=== PATIENT | female | born 1995 | race Caucasian/White ===

== ENCOUNTER → 2017-09-05 12:23 | Outpatient (CLI) | payer MEDICAID, SELFPAY ==
[2017-09-05 13:53] LABS: T4 Free Direct 0.77 ng/dL (0.76-1.46)
[2017-09-07 11:22] LABS: Dilute Russell Viper Venom 29.2 sec (0.0-47.0)
[2017-09-07 11:28] LABS: Beta-2-Glycoprotein I IgA <9 (0-25); Beta-2-Glycoprotein I IgG <9 (0-20); Beta-2-Glycoprotein I IgM <9 (0-32)
== END ==
PROVIDERS: Family Provider Obstetrics & Gynecology Maternal & Fetal Medicine; PCP Pediatrics; Visit Provider Obstetrics & Gynecology Maternal & Fetal Medicine
DX: O09.292 Supervision of pregnancy with other poor reproductive or obstetric history, second trimester (principal); Z3A.00 Weeks of gestation of pregnancy not specified
CPT/HCPCS: 36415; 84439; 84443; 85613; 86146

== ENCOUNTER → 2017-09-21 14:21 | Outpatient (CLI) | payer MEDICAID, SELFPAY ==
[2017-09-21 15:51] LABS: Glucose Challenge Gest 1H 50g 76 mg/dL (70-140)
[2017-09-21 15:56] LABS: Hematocrit 32.4 % (37-47); Hemoglobin 10.4 g/dl (12.0-15.0); Mean Corp Hgb Conc 32.1 g/gl (32-36); Mean Corpuscular Hgb 29.5 pg (27.0-32.0); Mean Corpuscular Volume 91.8 fL (81-99); Mean Platelet Vol. 10.5 fl (6.2-12.0); Platelet Count 220 K/mm3 (150-450); RBC Distribution Width CV 13.3 % (11.6-14.6); RBC Distribution Width SD 44.2 fl (35.1-43.9); Red Blood Count 3.53 M/mm3 (4.2-5.4); White Blood Count 8.2 K/mm3 (4.4-11.0)
[2017-09-21 16:08] LABS: Scan Indicated on CBC? Y/N NO
== END ==
PROVIDERS: Visit Provider Obstetrics & Gynecology
DX: Z34.82 Encounter for supervision of other normal pregnancy, second trimester (principal)
CPT/HCPCS: 36415; 82950; 85027

== ENCOUNTER → 2017-10-11 18:45 | Outpatient (CLI) | payer MEDICAID, SELFPAY ==
[2017-10-11 19:26] LABS: Free T3 2.6 pg/mL (2.18-3.98); T4 Free Direct 0.87 ng/dL (0.76-1.46); Thyroid Stim Hormone (TSH) 1.19 uIU/mL (0.358-3.74)
== END ==
PROVIDERS: Pediatrics; Visit Provider Obstetrics & Gynecology
DX: O99.283 Endocrine, nutritional and metabolic diseases complicating pregnancy, third trimester (principal); R94.6 Abnormal results of thyroid function studies; Z3A.00 Weeks of gestation of pregnancy not specified
CPT/HCPCS: 84439; 84443; 84481

== ENCOUNTER → 2017-11-01 15:18 | Outpatient (CLI) | payer MEDICAID, SELFPAY ==
[2017-11-01 17:02] LABS: Free T3 2.1 pg/mL (2.18-3.98); T4 Free Direct 0.85 ng/dL (0.76-1.46); Thyroid Stim Hormone (TSH) 0.78 uIU/mL (0.358-3.74)
== END ==
PROVIDERS: Visit Provider Obstetrics & Gynecology
DX: E05.90 Thyrotoxicosis, unspecified without thyrotoxic crisis or storm (principal)
CPT/HCPCS: 36415; 84439; 84443; 84481

== ENCOUNTER 2017-11-11 19:25 | Outpatient (CLI) | payer MEDICAID, SELFPAY ==
[2017-11-11 19:45] VITALS: BMI 26.9
[2017-11-11 20:04] LABS: Mucous, Urine 0 SEEN /hpf (<or=2+); Red Blood Cells-Urine 0 SEEN /hpf (0-5)
[2017-11-11 20:10] LABS: Color, Urine Yellow (Yellow); Glucose, Dipstick Normal (Normal); Ketone-Dipstick Negative (Negative); Leukocyte Esterase-Dipstick 100 /ul (Negative); Nitrite-Dipstick Negative (Negative); Occult Blood-Urine Negative /ul (Negative); Protein-Dipstick Negative (Negative); Specific Gravity, Urine 1.015 (1.002-1.030); Urine Bilirubin Dipstick Negative (Negative); Urine Clarity Cloudy (Clear); Urine Urobilinogen 1 mg/dl (Normal); Urine pH 6.5 (5.0 - 8.0)
[2017-11-11 20:22] LABS: Coarse Granular Cast 0-5 SEEN /lpf (0-5 /lpf); Fine Granular Cast- Urine 0 SEEN /lpf (0-5)
[2017-11-11 20:24] LABS: Bacteria 1+ /hpf (None Seen)
[2017-11-11 20:25] LABS: Squamous Epithelial Cells - UA 5-10 SEEN /hpf (5-10)
[2017-11-11 20:27] LABS: White Blood Cells 10-25 SEEN /hpf (0-5)
[2017-11-11 20:29] LABS: ROM Internal Control Test YES-OK TO RESULT pt. (Internal QC); ROM Patient Test Negative (Negative)
[2017-11-11 20:29] LABS: Amorphous Sediment 1+
[2017-11-11 21:08] VITALS: BP 123/66; PULSE 88; RESP 18; TEMP 37.1
--- NOTE | 2017-11-15 07:28 | OB.TRI.NOTE ---
History of Present Illness Was patient seen by the physician?: No Reason For Visit: R/O LABOR Date of Service: 11/11/17 Final AMANDA: 12/22/17 Final AMANDA Source: US <20 weeks Gestational age: 34 Weeks and 1 Days History of Present Illness: 22yo at 34 1/7wga with c/o irregular contractions and leaking of fluid. Home Medications Medication Instructions Recorded Multivitamin Tablet 1 tab PO DAILY 01/26/17 Allergies No Known Allergies Allergy (Verified 11/11/17 20:47) Physical Exam Vitals: Vital Signs Temp Pulse Resp BP 98.8 F 88 18 123/66 H 11/11/17 21:08 11/11/17 21:08 11/11/17 21:08 11/11/17 21:08 NST - FHR Rate Baby A Baseline: 150 Variability:: Moderate Accelerations:: 15 x 15 Decelerations:: None NST Reactive:: Yes FHR Category:: Category I Uterine Activity:: 1/10 min Impression/Plan Dx false labor < 37wga -ROM plus negative -U/A - not definitive for UTI, possible contamination, Ucx sent -d/c home
== END 2017-11-11 21:13 | disposition home or self-care (01) ==
LOC: WPOUT 19:28 → WP 19:29
PROVIDERS: Family Provider Pediatrics; PCP Pediatrics; Visit Provider Obstetrics & Gynecology
DX: O47.03 False labor before 37 completed weeks of gestation, third trimester (principal); Z3A.34 34 weeks gestation of pregnancy
CPT/HCPCS: 59025; 59050; 81001; 84112; 87086; 87088; 99218; G0378

== ENCOUNTER 2017-11-17 01:02 | Outpatient (CLI) | payer MEDICAID, SELFPAY ==
[2017-11-17 01:29] VITALS: BMI 26.6
[2017-11-17 02:10] VITALS: RESP 18
--- NOTE | 2017-11-30 23:48 | OB.TRI.NOTE ---
History of Present Illness Date of Service: 11/18/17 Was patient seen by the physician?: No Reason For Visit: R/O LABOR Date of Service: 11/18/17 Final AMANDA: 12/22/17 Final AMANDA Source: US <20 weeks Gestational age: 36 Weeks and 6 Days History of Present Illness: Irregular contractions. Allergies No Known Allergies Allergy (Verified 11/17/17 01:27) Physical Exam Vitals: Vital Signs Resp 18 11/17/17 02:10 General: Alert, Oriented x3, Cooperative, No apparent distress Cardiovascular: Regular rate, Regular Rhythm Lungs: Clear to auscultation, Normal air movement Abdomen: Soft, Non Tender, Non-Distended, Gravid, Appropriate for Gestational Age Extremities:: No edema Neurological: Neuro grossly intact HEALTH COMMUNICATIONS SPECIALIST: Normal external genitalia Estimated gestational size: Appropriate for gestational size Presentation: Cephalic Cervix Dilation (cm): 2 Station: -3 Effacement (%): 50 NST - FHR Rate Baby A Baseline: 130s Variability:: Moderate Accelerations:: 15 x 15 Decelerations:: None NST Reactive:: Yes FHR Category:: Category I Uterine Activity:: irregular Impression/Plan No cervical change. Contractions mild. No signs of SROM. Cat 1 tracing.
--- NOTE | 2017-11-30 23:51 | OB.TRI.HP_ITS ---
History of Present Illness Date of Service: 11/18/17 Was patient seen by the physician?: No Reason For Visit: R/O LABOR Date of Service: 11/18/17 Final AMANDA: 12/22/17 Final AMANDA Source: US <20 weeks Gestational age: 36 Weeks and 6 Days History of Present Illness: Irregular contractions. Allergies No Known Allergies Allergy (Verified 11/17/17 01:27) Physical Exam Vitals: Vital Signs Resp 18 11/17/17 02:10 General: Alert, Oriented x3, Cooperative, No apparent distress Cardiovascular: Regular rate, Regular Rhythm Lungs: Clear to auscultation, Normal air movement Abdomen: Soft, Non Tender, Non-Distended, Gravid, Appropriate for Gestational Age Extremities:: No edema Neurological: Neuro grossly intact [employer]: Normal external genitalia Estimated gestational size: Appropriate for gestational size Presentation: Cephalic Cervix Dilation (cm): 2 Station: -3 Effacement (%): 50 NST - FHR Rate Baby A Baseline: 130s Variability:: Moderate Accelerations:: 15 x 15 Decelerations:: None NST Reactive:: Yes FHR Category:: Category I Uterine Activity:: irregular Impression/Plan No cervical change. Contractions mild. No signs of SROM. Cat 1 tracing.
== END 2017-11-17 02:10 | disposition home or self-care (01) ==
LOC: WPOUT 01:11 → WP 01:11
PROVIDERS: Family Provider Pediatrics; PCP Pediatrics; Visit Provider Obstetrics & Gynecology
DX: O47.03 False labor before 37 completed weeks of gestation, third trimester (principal); Z3A.36 36 weeks gestation of pregnancy
CPT/HCPCS: 59025; 59050; 99218; G0378

== ENCOUNTER 2017-11-18 22:35 | Outpatient (CLI) | payer MEDICAID, SELFPAY ==
[2017-11-18 23:37] LABS: ROM Internal Control Test YES-OK TO RESULT pt. (Internal QC); ROM Patient Test Negative (Negative)
[2017-11-19 00:01] VITALS: BMI 27.1
--- NOTE | 2017-11-19 12:43 | OB.TRI.NOTE ---
History of Present Illness Date of Service: 11/18/17 Was patient seen by the physician?: No Reason For Visit: R/O LABOR Date of Service: 11/18/17 Final AMANDA Source: US <20 weeks Gestational age: 35 weeks 1 day History of Present Illness: 35+ week intrauterine presents with some leaking of fluid. Concerned that she may be ruptured. Some irregular contractions. Allergies No Known Allergies Allergy (Verified 11/17/17 01:27) NST - FHR Rate Baby A NST Reactive:: Yes FHR Category:: Category I Impression/Plan 35+ week intrauterine presents with some transient contractions and concern about rupture of membranes. ROM plus test was negative. Cervix was 2-3 thick and high. Reactive nonstress test. Will release to home with routine instructions.
== END 2017-11-19 00:15 | disposition home or self-care (01) ==
LOC: WPOUT 23:06 → WP 23:07
PROVIDERS: Family Provider Pediatrics; PCP Pediatrics; Visit Provider Obstetrics & Gynecology
DX: O60.03 Preterm labor without delivery, third trimester (principal); Z3A.35 35 weeks gestation of pregnancy
CPT/HCPCS: 59025; 59050; 84112; 99218; G0378

== ENCOUNTER 2017-11-21 11:50 | Outpatient (CLI) | payer MEDICAID, SELFPAY ==
--- NOTE | 2017-11-21 11:50 | DT_ITS ---
This patient was seen during an EMR downtime November 21, 2017 - November 28, 2017. This patient may have a combination of paper and electronic documentation or all paper documentation. All documentation is viewable within the e-chart portion of [facility] for each patient visit.
[2017-11-24 18:25] LABS: ROM Internal Control Test YES-OK TO RESULT pt. (Internal QC); ROM Patient Test Negative (Negative)
--- NOTE | 2017-12-14 09:23 | OB.TRI.NOTE ---
History of Present Illness Was patient seen by the physician?: No Reason For Visit: R/O LABOR Date of Service: 11/21/17 Final AMANDA: 12/22/17 Final AMANDA Source: US <20 weeks Gestational age: 35 Weeks and 4 Days History of Present Illness: 35+ week intrauterine presents with contractions and possible leaking of amniotic fluid. Allergies No Known Allergies Allergy (Verified 11/17/17 01:27) NST - FHR Rate Baby A NST Reactive:: Yes Impression/Plan 35+ week intrauterine with transient contractions. ROM plus negative. Reactive nonstress test. Released to home with routine instructions.
== END 2017-11-21 15:50 | disposition home or self-care (01) ==
LOC: WPOUT 11-23 08:07
PROVIDERS: Family Provider Pediatrics; PCP Pediatrics; Visit Provider Obstetrics & Gynecology
DX: O47.03 False labor before 37 completed weeks of gestation, third trimester (principal); Z3A.35 35 weeks gestation of pregnancy
CPT/HCPCS: 59025; 59050; 84112; 99218; G0378

== ENCOUNTER → 2017-11-23 14:00 | Outpatient (CLI) | payer SELFPAY ==
--- NOTE | 2017-11-23 14:00 | DT_ITS ---
This patient was seen during an EMR downtime November 21, 2017 - November 28, 2017. This patient may have a combination of paper and electronic documentation or all paper documentation. All documentation is viewable within the e-chart portion of [facility] for each patient visit.
[2017-11-26 09:33] LABS: Group B Strep DNA By PCR Negative (Negative); Internal Control PASS; Probe Check PASS; Specimen Processing Control PASS
== END ==
PROVIDERS: Family Provider Pediatrics; PCP Pediatrics; Visit Provider Obstetrics & Gynecology
DX: Z34.83 Encounter for supervision of other normal pregnancy, third trimester (principal)
CPT/HCPCS: 87081; 87653

== ENCOUNTER 2017-12-13 06:06 | Inpatient (IN) | payer MEDICAID, SELFPAY ==
[2017-12-13 06:42] VITALS: BMI 28.6
[2017-12-13] MEDS: Lactated Ringers 1,000 ML 50 ML IV (06:50)
[2017-12-13 07:08] LABS: Hematocrit 31.1 % (37-47); Hemoglobin 9.7 g/dl (12.0-15.0); Mean Corp Hgb Conc 31.2 g/gl (32-36); Mean Corpuscular Hgb 25.7 pg (27.0-32.0); Mean Corpuscular Volume 82.5 fL (81-99); Mean Platelet Vol. 10.4 fl (6.2-12.0); Platelet Count 237 K/mm3 (150-450); RBC Distribution Width CV 14.2 % (11.6-14.6); RBC Distribution Width SD 43.2 fl (35.1-43.9); Red Blood Count 3.77 M/mm3 (4.2-5.4); White Blood Count 10.4 K/mm3 (4.4-11.0)
[2017-12-13] MEDS: Oxytocin 30 units/NS 500 ml 30 UNITS/500 ML IV.SOLN 334 UNITS IV (07:50)
[2017-12-13 07:58] LABS: Scan Indicated on CBC? Y/N NO
--- NOTE | 2017-12-13 08:00 | PCM.OB.VAG ---
Vaginal Delivery Maternal Presentation: Active Labor, Spontaneous Rupture of Membranes Amniotic Membrane Rupture Type: Spontaneous at home Final AMANDA: 12/22/17 Final AMANDA Source: US <20 weeks Gestational age: 38 Weeks and 5 Days Date of Procedure: 12/13/17 Pre-Operative Diagnosis: IUP Post-Operative Diagnosis: IUP Surgery/ Procedure Performed: Spontaneous Vaginal Delivery Type of Anesthesia: None Description of Procedure: Spontaneous vaginal delivery of a viable female with Apgars of 8/8 with a normal three-vessel placenta. No episiotomy or laceration. Sponge counts okay. Delivery physician: Jh Geiger MD. Presentation: Vertex Placental Delivery Description: Spontaneous Placenta Disposition: [facility] Cord Vessel Description: 3 Vessels Cord Gases drawn per routine: ABG Cord Entanglement: None Estimated Blood Loss: 250 cc Infant A gender: Female (1 minute): 8 (5 minute): 8 Episiotomy Description: None Laceration: None Medications given after delivery: IV Pitocin Complications: None
--- NOTE | 2017-12-13 08:03 | PCM.DCVAG ---
Discharge Diet: No Restrictions Discharge Activity: May Shower, May Take a Tub Bath May resume sexual activity in: 4-6 weeks Additional Activity Instructions:: Nothing in the vagina for 4-6 weeks. You may return to work/school in 6 weeks. Call your doctor if you observe: Fever of 101 or Higher, Inability to urinate, Inability to have a bowel movement, Using more than one pad per hour Additional Instructions: If you experience any of the following, contact your healthcare provider. Bleeding that soaks a pad every hour for 2 hours Unrelieved incision or abdominal pain Swelling, redness, discharge or bleeding from your incision or episiotomy site Your incision begins to separate Problems urinating (including inability to urinate or burning while urinating). Visual changes Severe headache Flu-like symptoms Pain or redness in one of both of your breasts Pain, warmth, tenderness or swelling in your legs, especially the calf area Frequent nausea and vomiting Symptoms of depression or anxiety If you experience any of the following, call 911 or go to the nearest Emergency Room. Chest pain Problems breathing Seizure activity Partial or complete paralysis of a body part, slurred speech, weakness or drooping of the face, or a sudden inability to walk or hold your balance Allergies/Adverse Reactions: Allergies No Known Allergies Allergy (Verified 11/17/17 01:27) Medications to take at Discharge Multivitamin Tablet 1 tab PO DAILY 01/26/17 Please Follow Up With: Osmin Lee MD - [phone] When: Call to make an appointment with your doctor in 6 weeks. Primary Care Physician: Wendy Covarrubias MD [Primary Care Provider] -
--- NOTE | 2017-12-13 08:04 | DCINST_ITS ---
Discharge Diet: No Restrictions Discharge Activity: May Shower, May Take a Tub Bath May resume sexual activity in: 4-6 weeks Additional Activity Instructions:: Nothing in the vagina for 4-6 weeks. You may return to work/school in 6 weeks. Call your doctor if you observe: Fever of 101 or Higher, Inability to urinate, Inability to have a bowel movement, Using more than one pad per hour Additional Instructions: If you experience any of the following, contact your healthcare provider. * Bleeding that soaks a pad every hour for 2 hours * Unrelieved incision or abdominal pain * Swelling, redness, discharge or bleeding from your incision or episiotomy site * Your incision begins to separate * Problems urinating (including inability to urinate or burning while urinating) . * Visual changes * Severe headache * Flu-like symptoms * Pain or redness in one of both of your breasts * Pain, warmth, tenderness or swelling in your legs, especially the calf area * Frequent nausea and vomiting * Symptoms of depression or anxiety If you experience any of the following, call 911 or go to the nearest Emergency Room. * Chest pain * Problems breathing * Seizure activity * Partial or complete paralysis of a body part, slurred speech, weakness or drooping of the face, or a sudden inability to walk or hold your balance Allergies/Adverse Reactions: Allergies No Known Allergies Allergy (Verified 11/17/17 01:27) Medications to take at Discharge Multivitamin Tablet 1 tab PO DAILY 01/26/17 Please Follow Up With: Osmin Lee MD - [phone] When: Call to make an appointment with your doctor in 6 weeks. Primary Care Physician: Wendy Covarrubias MD [Primary Care Provider] -
[2017-12-13] MEDS: Oxytocin 30 units/NS 500 ml 30 UNITS/500 ML IV.SOLN 167 UNITS IV (08:20)
[2017-12-13] MEDS: Ibuprofen 600 MG Tablet PO ×2 (11:12→19:56)
[2017-12-13 12:50] VITALS: BP 94/55; PULSE 73; RESP 16; TEMP 36.3
[2017-12-13 17:30] VITALS: BP 110/65; PULSE 68; RESP 20; TEMP 36.9; O2SAT 98
[2017-12-13 19:40] VITALS: BP 104/52; PULSE 72; RESP 16; TEMP 36.6
[2017-12-13] MEDS: Mag Hydrox/Al Hydrox/Simeth 30 ML UDC PO (22:13)
[2017-12-14] VITALS: BP 118/58; PULSE 72; RESP 16; TEMP 36.1
[2017-12-14 03:25] VITALS: BP 110/64; PULSE 90; RESP 18; TEMP 36.7
[2017-12-14] MEDS: Ibuprofen 600 MG Tablet PO (07:04)
[2017-12-14 08:48] VITALS: BP 122/72; PULSE 59; RESP 18; TEMP 36.9; O2SAT 98
--- NOTE | 2017-12-14 09:18 | PCM.PN.OB ---
Subjective: Patient without complaints. Breast-feeding going well. Minimal vaginal bleeding reported. Baby under bili lights and plans to stay until tomorrow. - Physical Exam Vital Signs Temp Pulse Resp BP Pulse Ox 98.4 F 59 L 18 122/72 H 98 12/14/17 08:48 12/14/17 08:48 12/14/17 08:48 12/14/17 08:48 12/14/17 08:48 Oxygen Delivery Method Room Air Weight: 183 lb Body Mass Index (BMI) 28.6 Intake and Output for Last 24 Hours 12/12/17 12/13/17 12/14/17 23:59 23:59 23:59 Output Total 900 / 900 Balance -900 / -900 Medical Necessity - Tobacco Use Smoking Status: Never smoker Assessment/Plan Doing well day #1. Continuing present care.
[2017-12-14 14:00] VITALS: BP 118/58; PULSE 70; RESP 16; TEMP 36.6; O2SAT 97
--- NOTE | 2017-12-14 16:51 | CASEMGMT ---
Social Work Assessment Labor and Delivery Unit Date of Referral: 12/14/2017 Time of Referral: 829 Referred By: social work identification Date of Intervention: 12/14/2017 Time of Intervention: 1530 Reason for Referral: mother of baby (MOB) and father of baby (FOB) with mental health history. History obtained from: MOB, FOB, and medical record; FOB only present for part of the conversation. Household composition: MOB, FOB, older daughter, and FOBs mother Zuleika live together. Home is reported to be 3 apartments. FOBs sisters Heide and Lois live in the basement, and then a family friend lives in the 3rd section of the home. MOB states home situation is safe and adequate. Patient's parent/guardian status: MOB is Kezia Merchant (age 21) and FOB is Alberto Moran (age 19). MOB and FOB have been together since February 2011. MOB denies any form of abuse in this relationship and states that FOB is helpful with the children. Minor Children: She Moran, born 8[birth year]9-17 and Dejon Moran, born 6[birth year]26-18. Medical History: MOB is G3, P1 to 2 after delivering Dejon. MOB with previous 17 week loss in December 2015, and then a 33 week delivery (She) in 2017. MOB with close proximity between pregnancies. born this admission at 38 weeks, weighing 7 pounds 5 ounce and Apgars 8 and 8 at 1 and 5 minutes of life. Educational Status: MOB graduated high school though did have and IEP for reading and math. MOB reports ability to read and to write. FOB also had an IEP in school and just graduated high school last year. Financial Status: HALEY is on disability which is the primary income for MOB and FOB. Zuleika also works, as does FOBs sisters. Infant Supplies: MOB and FOB report to have needed supplies including bassinet, 6 [id number], car seat, clothing, diapers, wipes, bottles, and formula. Childcare/Caregiver(s): MOB is primary caregiver with help from FOB and FOBs family. Transportation: FOBs grandmother, taxis, and walking. MOB states plan to try and get a drivers license this year. Programs/Agencies Involved: Active with [employer], and then [employer] for food and medical. MOB reports history of [employer], but not interested in a new referral. MOB utilizes [employer] for the taxi pass program. Plan to use Dr. Wendy Covarrubias for pediatric follow up. Children Services/Legal Issues: No reported legal issues. MOB reports after She was born children services came out one time to make sure that needs were in place. MOB reports children services found everything to be in order can closed the investigation. Behavioral Health Issues: MOB reports history of depression as a teenager, but reports it has been years since being on medicine. MOB denies any history of, or current thoughts of suicide plan, intent or attempt. MOB denies any depression or anxiety after She was born. MOB denies any history of drug or alcohol issues. MOB reports tried alcohol one time and did not like it. No tobacco use. MOB had a negative drug screen prenatally on 05-25-2017. Family/Social Stressors: MOB and FOB deny any new current social stressors or concerns. MOB does share that Amy mother still has not met She after 11 months as MOBs mother is not sober from drugs and alcohol. MOB report will not let MOBs mom around until can get clean. Note, MOB and FOB now have 2 children under the age of 1. MOB denies feeling really overwhelmed by this, but reports to know that FOB will have to help more. Also note, HALEY does have long history of emotional health issues including Schizophrenia, Bipolar Disorder, ADD, ADHD, ODD, Aspergers, and Autism. FOB report not in current mental health treatment but is prescribed medication from food quality tester Dr. Covarrubias. MOB and FOB rely on others or taxis for transportation though MOB did not express this to be a stressor. Support Systems: MOB reports to HALEY, Zuleika, and FOBs family are a good support to MOB and are around to help MOB frequently. Depression/Shaken Baby/Safe Sleeping: MOB and FOB listened to education on depression, and encouragement for both parents to seek out help and support should symptoms develop. Talked about shaken baby and safe sleeping. MOB able to give appropriate responses. ASSESSMENT/OBSERVATIONS: This designer writer familiar with MOB and FOB from previous delivery at [facility]. MOB and FOB both cooperative and pleasant during social work visit, and were attending to baby. Observed MOB to feed baby a bottle, which MOB did so with baby lying beside MOB as baby on a bili blanket. MOB was gentle. When baby was done, MOB asked FOB if wanted to hold the baby before hade to go under the lights again. FOB didnt really respond, but then MOB told FOB to take baby and that baby needed changed. FOB took baby, holding baby vertically and not supporting head, though was gentle. FOB took baby to bedside crib and started to change the baby, but then informed MOB that MOB could get this diaper change (the diaper was quite messy). MOB got up and changed the diaper without incident, was gentle and appropriate. MOB then get baby wrapped up and told dad that dad could hold baby until the lights. FOB then held baby to chest for some time but when got up to put in crib, FOB once again held baby vertically in front without head support. This designer writer interjected and said that babys heads need to be supported. FOB referenced that had 2 fingers hold the head but the baby slipped her head. FOB was gentle though, and calm. MOB answered questions, held good eye contact, remained on task, and friendly. MOB mood and affect appropriate and congruent. FOB also friendly and participating, though at times seemed dazed. FOB apologized for this and stated that anxiety mediation is wearing off and will be going home to get todays dose of medicine. FOB did suck his thumb intermittently during social work visit. Note, during conversation FOBs mother Zuleika called and when MOB told Zuleika that a social media senior associate was in the room Zuleika asked to speak to this designer writer. MOB assured Zuleika that all was okay, that this designer writer was just checking on how She is doing and how the baby is doing. MOB gave the phone to this designer writer. Zuleika asked if this a routine visit, which this designer writer indicated in the affirmative. Zuleika reports MOB and FOB have been doing well at home caring for She, and that Zuleika remains available to help the parents out with the children. Zuleika reports that called pediatricians office and got a hospital follow up for Tuesday. Let Zuleika know that baby will likely need to be seen before but will have MOB call Zuleika if this is so. (Note, checked with nursing staff who checked with food quality tester and baby will need to be seen in 1-2 days of discharge). Updated MOB. PLAN: Will follow up with family again on 12-15-16 before home going, see how the evening went and provide resources for home going. Updated nursing. -OMAR Torres, RECYCLING CREW SUPERVISOR
[2017-12-14 20:00] VITALS: BP 128/62; PULSE 85; RESP 16; TEMP 37.1; O2SAT 96
[2017-12-15 02:20] VITALS: BP 120/68; PULSE 77; RESP 18; TEMP 36.6; O2SAT 98
--- NOTE | 2017-12-15 07:39 | PCM.PN.OB ---
Subjective: No significant complaints. Bleeding light. Breast feeding. Objective: Afeb VSS - Physical Exam General: Alert, Oriented x3, Cooperative, No apparent distress Lungs: Clear to auscultation, Normal air movement Cardiovascular: Regular rate, Regular Rhythm Abdomen: Soft, Non Tender, Non-Distended Extremities: No edema Skin: No rashes Neurological: Neuro grossly intact Psych/Mental Status: Normal Affect Comment: Lochia light Vital Signs Temp Pulse Resp BP Pulse Ox 97.8 F 77 18 120/68 98 12/15/17 02:20 12/15/17 02:20 12/15/17 02:20 12/15/17 02:20 12/15/17 02:20 Oxygen Delivery Method Room Air Weight: 183 lb Body Mass Index (BMI) 28.6 Intake and Output for Last 24 Hours 12/13/17 12/14/17 12/15/17 23:59 23:59 23:59 Output Total 900 / 900 Balance -900 / -900 Medical Necessity - Tobacco Use Smoking Status: Never smoker Assessment/Plan Doing well on PP day#2. Cleared for discharge home today. Home going instructions and warnings given.
--- NOTE | 2017-12-15 07:40 | PCM.DC.SUM ---
Discharge Date and Diagnosis Date of Admission: 12/13/17 Date of Discharge: 12/15/17 - Primary Discharge Diagnosis S/P Hospital Course and Treatment Consultations 12/13/17 06:42 Consult: Anesthesia Routine Comment: Reason For Exam: labor Operations: None Procedures: - - Summary of Care Provided: The patient is a 22 year old F [presented in active labor. Progressed to FD then pushed to affect uncomplicated vaginal delivery. Post course unremarkable. Discharged home on pp day#2.] Discharge Diet: No Restrictions Discharge Activity: May Shower, May Take a Tub Bath May resume sexual activity in: 4-6 weeks Additional Activity Instructions:: Nothing in the vagina for 4-6 weeks. You may return to work/school in 6 weeks. Call your doctor if you observe: Fever of 101 or Higher, Inability to urinate, Inability to have a bowel movement, Using more than one pad per hour Home Medications: Medications to take at Discharge Multivitamin Tablet 1 tab PO DAILY 01/26/17 Primary Care Physician: Wendy Covarrubias MD [Primary Care Provider] - Please Follow Up With: Osmin Lee MD - [phone] When: 6 weeks Disposition: Home Minutes spent on discharge:: 15 Patient Condition:: Good Medical Necessity - Tobacco Use Smoking Status: Never smoker Meaningful Use Info Meaningful Use Diagnoses (Choose all that apply): None applicable
[2017-12-15 09:45] VITALS: BP 108/59; PULSE 74; RESP 14; TEMP 36.6; O2SAT 95
== END 2017-12-15 12:35 | disposition home or self-care (01) | DRG 373 ==
PROVIDERS: Admitting Provider Obstetrics & Gynecology; Family Provider Pediatrics; PCP Pediatrics; Visit Provider Obstetrics & Gynecology
DX: O42.02 Full-term premature rupture of membranes, onset of labor within 24 hours of rupture (principal); Z3A.38 38 weeks gestation of pregnancy; Z37.0 Single live birth
CPT/HCPCS: 59025; 59050; 85027; 86850; 86900; 99218; J7120; G0378

== ENCOUNTER 2018-01-14 15:55 | Emergency (ER) | payer MEDICAID, SELFPAY ==
[2018-01-14 15:56] VITALS: BP 109/77; PULSE 132; RESP 16; TEMP 38.2; O2SAT 97; BMI 25.4
[2018-01-14 16:19] VITALS: PULSE 107; RESP 16; O2SAT 100
[2018-01-14] MEDS: Ketorolac 60 MG/2 ML Vial IM (16:22)
[2018-01-14] MEDS: Ondansetron ODT 4 MG Tablet 8 MG PO (16:22)
--- NOTE | 2018-01-14 16:23 | ED.DCSUM_ITS ---
History of Present Illness Chief Complaint: Fever Informant: Patient Onset: Days - 4 Context: Gradual Onset Timing: Continuous Associated Symptoms: headache, dizzy, myalgias, nausea Narrative: Subjective fevers that were measured at 102.8 at urgent care just prior to arrival here, she was sent here she states. We did not receive a phone call. She states the symptoms been going on for 4 days, in addition to mildly erythematous itchy rash on her face that has been there for 1 day. She delivered a baby 32 days ago that is doing well. She is bottle-, not breast- feeding. No known sick contacts. She had no issues with her , no -induced hypertension or preeclampsia. She was a spontaneous vaginal delivery. Baby has been well, except for a rash. Patient denies any neck stiffness or neurologic symptoms or confusion. Past Medical History - Allergies and Home Meds Allergies/Adverse Reactions: Allergies No Known Allergies Allergy (Verified 11/17/17 01:27) Primary Care Physician: Wendy Covarrubias MD [Primary Care Provider] - Past Medical History: None Surgical History: no surgical history Lives: With Family Smoking Status: Never smoker Review of Systems All systems negative except as indicated General: Reports: Fever, Malaise Eyes: Denies: Visual changes - bilaterally, Diplopia ENT: Denies: Bilateral ear pain, Rhinorrhea, Sore throat Cardiovascular: Denies: Chest pain Respiratory: Denies: Dyspnea, Cough, Sputum, Dyspnea on exertion Gastrointestinal: Reports: Nausea. Denies: Abdominal pain, Vomiting, Diarrhea, Hematochezia Genitourinary: Denies: Dysuria, Hematuria, Frequency Musculoskeletal: Reports: Myalgias. Denies: Arthralgias, Neck pain, Back pain, Swelling, Extremity Pain Skin: Reports: Rash. Denies: Abscess Neurological: Reports: Headache. Denies: Weakness, Parasthesia, Numbness Endocrine: Denies: Polyuria, Polydipsia, Heat intolerance, Cold intolerance Hematologic: Denies: Easy bruising, Easy bleeding Allergy: Denies: Uticaria, Swelling of the mouth, Swelling of the tongue Physical Exam Vital Signs/Narrative: Vital Signs Temp Pulse Resp BP Pulse Ox 01/14/18 15:56 100.8 F H 132 H 16 109/77 97 Inital Vital Signs reviewed: Yes General: Well nourished, Well developed, - - Well-appearing, no acute distress Head: Normocephalic, Atraumatic Eyes: Perrl, EOMI ENT: Moist mucous membranes, No rhinorrhea, TM's clear, - - Posterior oropharynx and tonsils are normal.. Negative for: Sinus tenderness Neck: Supple, Nontender, No lymphadenopathy, - - from. No meningismus. Cardiovascular: Regular rate, Regular rhythm, No murmurs, Tachycardia Respiratory: No distress, CTA bilaterally, Chest nontender Abdomen: Soft, Nontender, Nondistended, Normal bowel sounds Back: Nontender, Normal Inspection. Negative for: CVA tenderness Extremities: Nontender, No edema Skin: Normal color, Rash - mild non-raised nontender blanching erythemetous patches on lower face/chin Neurological: Alert, Oriented x3, Cranial nerves II-XII grossly intact, Normal Strength, Normal Sensation, - - Neg Kernig/Brudzinski Psychological: Normal affect Diagnostic/Tx/Re-eval - Medical Decision Making This patient has a very normal physical exam and is very well appearing with a very normal blood pressure. She does not have preeclampsia or HELLP syndrome. Her symptoms and appearance are consistent with a viral syndrome. I do not think further workup is indicated or necessary. I discussed this with her and she is comfortable with that, we discussed precautions to take while being around her baby. We discussed an injection of Toradol which she was amenable to , in addition to a dose of Zofran. Supportive care advised and outpatient follow-up or returning if worsening symptoms. She certainly does not examine like meningitis at this time. It is not flu season and there have been no influenza cases in the area recently so I do not think she needs tested for that. ED Disposition - Plan for ED Patient: Disposition: Home or Assisted Living Chief Complaint: Fever Diagnosis: Viral syndrome Instructions: ED Viral Syndrome Referrals: Wendy Covarrubias MD [Primary Care Provider] - 1 Week if not improving
[2018-01-14 16:42] VITALS: PULSE 99; RESP 18; O2SAT 100
== END 2018-01-14 16:44 | disposition home or self-care (01) ==
PROVIDERS: Emergency Provider Emergency Medicine; Family Provider Pediatrics; PCP Pediatrics
DX: B34.9 Viral infection, unspecified (principal)
CPT/HCPCS: 96374; 99283

== ENCOUNTER → 2019-02-07 14:03 | Outpatient (CLI) | payer MEDICAID, SELFPAY | PROVIDERS: Visit Provider Obstetrics & Gynecology | DX: Z12.4 Encounter for screening for malignant neoplasm of cervix (principal) | CPT/HCPCS: 88175; G0145 ==

== ENCOUNTER 2019-02-11 12:24 | Emergency (ER) | payer MEDICAID, SELFPAY ==
[2019-02-11 12:26] VITALS: BP 124/68; PULSE 111; RESP 14; TEMP 37; O2SAT 97; BMI 25.9
--- NOTE | 2019-02-11 12:39 | ED.VIS.URI ---
History of Present Illness <[email or web address] - Last Filed: 02/11/19 13:16> Informant: Patient Onset: Yesterday Context: Gradual Onset Timing: Continuous Quality: aching Location: myalgias Current Severity: Moderate Maximum Severity: Moderate Worsened by: Swallowing Relieved by: - - nothing Associated Symptoms: Nasal Congestion, Headache, Myalgias, Nonproductive cough Narrative: 23-year-old female no significant past medical history presents with upper respiratory symptoms and a headache. Symptoms began yesterday. She has a sore throat nasal congestion and runny nose, nonproductive cough and a frontal headache. It is not the worst headache of her life. It has gradually gotten worse since yesterday. No head trauma. No fevers. No neck pain. No dizziness or lightheadedness. No visual changes. No difficulty with speech or ambulation. No numbness tingling or weakness. Has not taken any medications yet for the symptoms. No history of migraines. Prior similar symptoms: No Recent Illness/Hospitalization: No <Caleb Hanson - Last Filed: 02/11/19 13:40> Chief Complaint: Headache Past Medical History <[email or web address] - Last Filed: 02/11/19 13:16> Prior records reviewed: Yes Past Medical History: None Surgical History: no surgical history Smoking Status: Never smoker <Caleb Hanson - Last Filed: 02/11/19 13:40> - Allergies and Home Meds Allergies/Adverse Reactions: Allergies No Known Allergies Allergy (Verified 02/11/19 12:26) Primary Care Physician: Care Physician,No Primary [Primary Care Provider] - Review of Systems All systems negative except as indicated General: Denies: Chills, Fever ENT: Reports: Rhinorrhea, Sore throat Respiratory: Reports: Cough Musculoskeletal: Reports: Myalgias Neurological: Reports: Headache <Caleb Hanson - Last Filed: 02/11/19 13:40> Physical Exam Vital Signs/Narrative: Vital Signs Temp Pulse Resp BP Pulse Ox 02/11/19 12:26 98.6 F 111 H 14 124/68 H 97 <SamreenGoodfrances - Last Filed: 02/11/19 13:16> Vital Signs/Narrative: Vital Signs Temp Pulse Resp BP Pulse Ox 02/11/19 12:26 98.6 F 111 H 14 124/68 H 97 Inital Vital Signs reviewed: Yes General: Well nourished, Well developed Head: Normocephalic, Atraumatic, Sinus Tenderness. Negative for: Frontal Tenderness, Maxillary Tenderness Eyes: Perrl, EOMI Ears: Normal external canal, TM's clear. Negative for: Pain with Movement of Right Tragus, Pain with Movement of Left Tragus, Right Mastoid Tenderness, Left Mastoid Tenderness Nose: Congestion. Negative for: Erythema Mouth/Throat: Airway Patent, Posterior Oropharyngeal Erythema. Negative for: Dry Mucous Membranes Tonsils: Right Tonsilar Erythema. Negative for: Right Tonsilar Exudates, Left Tonsilar Exudates, Right Tonsilar Swelling, Left Tonsilar Swelling Neck: Supple, Nontender, No Lymphadenopathy, No Meningismus Cardiovascular: Regular rate, Regular rhythm, No murmurs Respiratory: No distress, CTA bilaterally, Chest nontender Abdomen: Soft, Nontender, Nondistended, Normal bowel sounds, No masses Back: Nontender, Normal Inspection Extremities: Nontender, No edema Skin: Normal color, No rash Neurological: Alert, Oriented x3 <Caleb Hanson - Last Filed: 02/11/19 13:40> Diagnostic/Tx/Re-eval - Medical Decision Making Patient seen with Caleb agree with history of above physical exam, complains of URI symptoms some mild headache her exam shows really some rhinorrhea neck very supple neurologic exam normal see the full physical exam and treatment plan for all details <Laura Jolley - Last Filed: 02/11/19 13:16> - Medical Decision Making Patient was given intramuscular Toradol for her headache. Her vital signs are stable. She is well-appearing overall. She has no meningeal signs. She has symptoms of an upper respiratory tract infection. Will prescribe Naprosyn and Tessalon Perles. We discussed continued supportive care at home and close follow-up with primary care. We discussed return precautions to the emergency department. She was discharged. <Caleb Hanson - Last Filed: 02/11/19 13:40> ED Disposition <Laura Jolley - Last Filed: 02/11/19 13:16> <Caleb Hanson - Last Filed: 02/11/19 13:40> - Plan for ED Patient: Disposition: Home or Assisted Living Diagnosis: Headache, URI with cough and congestion Instructions: HEADACHE, Tension Prescriptions: Naproxen [Naprosyn] 500 mg PO BID PRN #20 tab Transmission Status: Pending to [facility] Benzonatate [Tessalon Perle] 200 mg PO TID PRN PRN #20 cap PRN Reason: Cough Transmission Status: Pending to [facility] Referrals: Care Physician,No Primary [Primary Care Provider] -
[2019-02-11] MEDS: Ketorolac 60 MG/2 ML Vial IM (13:12)
[2019-02-11 13:54] VITALS: BP 122/67; PULSE 99; RESP 16; O2SAT 98
== END 2019-02-11 13:55 | disposition home or self-care (01) ==
PROVIDERS: Emergency Provider Physician Assistant Medical
DX: R51 Headache (principal); J06.9 Acute upper respiratory infection, unspecified
CPT/HCPCS: 96372; 99282

== ENCOUNTER → 2020-02-27 | Outpatient (CLI) | payer MEDICAID, SELFPAY ==
[2020-03-07 02:31] LABS: HPV Reflexed? NOT INDICATED
== END | disposition home or self-care (01) ==
LOC: LABSPEC 13:48
PROVIDERS: Visit Provider Obstetrics & Gynecology
DX: Z12.4 Encounter for screening for malignant neoplasm of cervix (principal)
CPT/HCPCS: 88175; G0145

== ENCOUNTER 2021-10-31 20:30 | Emergency (ER) | payer MEDICAID, SELFPAY ==
[2021-10-31 20:31] VITALS: BP 157/85; PULSE 102; RESP 18; TEMP 36.5; O2SAT 99; BMI 26.3
--- NOTE | 2021-10-31 20:46 | EX.ED.DYSGE1 ---
HPI History of Present Illness Chief Complaint: Ear Problem Informant: patient Onset/Context/Timing Onset: Yesterday Context: Gradual Onset Current Severity: Mild Maximum Severity: Mild Narrative Narrative: She is at thePatient presents with left ear pain that started yesterday. She recently had left dental pain her pain was secondary to her teeth. The dental pain has completely resolved but she still has left ear pain. No fever or chills. No URI symptoms. PFSH PFSH Medical History no medical history no medical history Home Medications benzonatate 200 mg PO TID PRN PRN #20 cap 02/11/19 [Rx Last Taken Unknown] naproxen 500 mg PO BID PRN #20 tab 02/11/19 [Rx Last Taken Unknown] amoxicillin-pot clavulanate 1 tab PO BID #20 tab 10/31/21 [Rx Last Taken Unknown] Allergy/AdvReac Type Severity Reaction Status Date / Time No Known Allergies Allergy Verified 02/11/19 12:26 Social History Smoking Status: Never smoker ROS ROS ED Constitutional Constitutional ED: Denies chills or fever(s) Eyes Eyes: Denies change in vision ENT ENT ED: Reports ear pain left; Denies sore throat Cardiovascular Cardiovascular: Denies chest pain Respiratory/Chest Respiratory/Chest: Denies cough or dyspnea Gastrointestinal Gastrointestinal: Denies abdominal pain, nausea or vomiting Musculoskeletal Musculoskeletal: Denies back pain Integumentary Denies rash Neurologic Neurologic: Denies headache(s) Allergic/Immunologic Allergic/Immunologic ED: Denies urticaria EXAM Physical Exam Const Vital Signs: 10/31/21 20:31 Temperature 97.7 F L Temperature Source Temporal Pulse Rate 102 H Respiratory Rate 18 Blood Pressure 157/85 H Blood Pressure Mean 109 Pulse Ox 99 Oxygen Delivery Method Room Air Positive well nourished and well developed General Appearance ED: well developed HEENT Reports moist mucous membranes HEENT Narrative: Right TM is clear. Left inner canal is erythematous. Hazy yellow fluid noted behind the TM. Eyes PERRL and EOMs intact bilaterally Neck supple Chest Wall inspection of chest normal and palpation of chest normal Resp normal respiratory effort and clear to auscultation bilaterally Cardio regular rate and regular rhythm GI non-tender Palpation: soft Extremity normal to inspection Neuro oriented x3 and no sensory deficits noted Sensorium / Orientation: alert Motor Exam: strength 5/5 throughout Psych mental status grossly normal Skin no rashes or lesions noted MDM MDM MDM Narrative Medical decision making narrative: Patient does have evidence of left otitis media. She will be treated with Augmentin, first dose given here. Return instructions provided. Discharge Plan Triage Chief Complaint: Ear Problem ED Provider: Deepa Ibanez Dx/Rx/DC Orders Clinical Impression: Otitis media Instructions: ED Otitis Media Antibiotic ... Prescriptions: New amoxicillin-pot clavulanate 875-125 mg tablet 1 tab PO BID Qty: 20 RF: 0 No Action benzonatate 100 MG capsule 200 mg PO TID PRN PRN (Reason: Cough) Qty: 20 RF: 0 naproxen 500 MG tablet 500 mg PO BID PRN Qty: 20 RF: 0 Primary Care Provider: Care Physician,No Primary Referrals: Hemalatha Tineo DO [STAFF PHYSICIAN] - As Needed Care Physician,No Primary [Primary Care Provider] - Disposition Disposition: Home, Self Care
[2021-10-31] MEDS: Amox/Clavulanate 875 MG Tablet PO (20:54)
[2021-10-31 20:58] VITALS: BP 157/85; PULSE 102; RESP 18; O2SAT 99
== END 2021-10-31 20:59 | disposition home or self-care (01) ==
PROVIDERS: Emergency Provider Emergency Medicine; Visit Provider Emergency Medicine
DX: H66.92 Otitis media, unspecified, left ear (principal)
CPT/HCPCS: 99283

== ENCOUNTER → 2022-08-05 | Outpatient (CLI) | payer MEDICAID, SELFPAY ==
[2022-08-12 22:48] LABS: HPV Reflexed? NOT INDICATED
== END | disposition home or self-care (01) ==
PROVIDERS: Visit Provider Obstetrics & Gynecology
DX: Z12.4 Encounter for screening for malignant neoplasm of cervix (principal)
CPT/HCPCS: 88175; G0145